=== PATIENT | female | born 1955 | race Hispanic/Latino ===

== ENCOUNTER 2021-08-10 23:19 | Emergency (ER) | payer MEDICARE ==
[2021-08-10 23:47] VITALS: BP 146/89
[2021-08-11] MEDS ORDERED: methylPREDNISolone Sod Succinate 40 MG/1 ML INJ IM ONE (05:02)
--- NOTE | 2021-08-11 05:12 | Emergency Department Report ---
ED General Adult HPI - General Chief complaint: Skin Rash Stated complaint: BED BUGS PUI?: No Time Seen by Provider: 08/11/21 05:02 Source: patient Mode of arrival: Ambulatory Limitations: No Limitations - History of Present Illness Initial comments: This is a 64-year-old female came in today with concerns of multiple papular sk in rash groups. According patient they are burning itching sensation throughout her body's. Patient states she was recently at urgent care where they prescribed antiparasitic medication for her. However, patient does medication are not working. Patient denies any other symptoms also denies fever chill night sweat dizziness blurred vision lightheadedness headache tinnitus ear pain runny nose sore throat loss of taste loss of smell chest pain palpitation short of breath cough abdominal pain nausea vomiting diarrhea constipation dysuria myalgia arthralgia and heat or cold intolerance. Severity scale (0 -10): 0 - Related Data Previous Rx's Medication Instructions Recorded Last Taken Type Hydrocortisone 0.5% 1 applicatio TP TID #1 tube 08/11/21 Unknown Rx [Hydrocortisone 0.5% CREAM] Allergies Allergy/AdvReac Type Severity Reaction Status Date / Time No Known Allergies Allergy Unverified 08/10/21 23:47 ED Review of Systems ROS: Stated complaint: BED BUGS Other details as noted in HPI Constitutional: see HPI Eyes: as per HPI ENT: as per HPI Respiratory: see HPI Cardiovascular: as per HPI Endocrine: see HPI Gastrointestinal: as per HPI Genitourinary: as per HPI Musculoskeletal: as per HPI Skin: as per HPI Neurological: as per HPI Psychiatric: as per HPI Hematological/Lymphatic: as per HPI ED Past Medical Hx - Past Medical History Previous Medical History?: Yes - Medications Home Medications: Home Medications Medication Instructions Recorded Confirmed Last Taken Type Hydrocortisone 0.5% 1 applicatio TP TID #1 tube 08/11/21 Unknown Rx [Hydrocortisone 0.5% CREAM] ED Physical Exam - General Limitations: No Limitations General appearance: alert, in no apparent distress - Head Head exam: Present: atraumatic, normocephalic, normal inspection - Eye Eye exam: Present: normal appearance, PERRL, EOMI Pupils: Present: normal accommodation - ENT ENT exam: Present: normal exam, normal orophraynx, mucous membranes moist - Neck Neck exam: Present: normal inspection - Respiratory Respiratory exam: Present: normal lung sounds bilaterally - Cardiovascular Cardiovascular Exam: Present: regular rate, tachycardia - GI/Abdominal GI/Abdominal exam: Present: soft - Back Exam Back exam: Present: normal inspection, full ROM - Neurological Exam Neurological exam: Present: oriented X3, CN II-XII intact - Psychiatric Psychiatric exam: Present: normal affect, normal mood - Skin Skin exam: Present: rash, other (RAISED PAPUAL RASH IN GROUPS THROUGHOUT THE BODY/EXTREMITEIS.) ED Course Vital Signs 08/10/21 23:46 Temperature 98 F Pulse Rate 110 H Respiratory 16 Rate Blood Pressure 146/89 [Right] O2 Sat by Pulse 98 Oximetry Critical care attestation.: If time is entered above; I have spent that time in minutes in the direct care of this critically ill patient, excluding procedure time. ED Disposition Clinical Impression: Infestation by bed bug Disposition: HOME / SELF CARE / HOMELESS Is pt being admited?: No Does the pt Need Aspirin: No Condition: Stable Instructions: Bedbugs, [id number] Time of Disposition: 05:12
[2021-08-11] MEDS ORDERED: HYDROCORTISONE 1% CREAM 28.4GM TP ONE (06:00)
== END 2021-08-11 08:30 | disposition home or self-care (01) ==
LOC: ED 23:19
DX: B88.8 Other specified infestations (principal); Z20.7 Contact with and (suspected) exposure to pediculosis, acariasis and other infestations
CPT/HCPCS: 96372; 99282; J2920